=== PATIENT | female | born 1945 | race Caucasian/White ===

== ENCOUNTER 2023-10-27 18:34 | Inpatient (IN) | payer MEDICAID, OTHER ==
[~2023-10-27] VITALS: Ht 157.5 cm; Wt 48.1 kg
[~2023-10-27 18:34] MED LIST: ASPI-1497 PO; METF-414 PO; METO25TA6 PO; SIMV-46 PO
[2023-10-27 18:38] VITALS: O2SAT 98
[2023-10-27 20:21] LABS: BASOPHILS % 0.4 % (0.0-2.0); EOSINOPHILS % 0.6 % (0.0-5.0); HEMATOCRIT. 29.6 % (36.0-48.0); HEMOGLOBIN. 9.5 g/dL (12.0-16.0); LYMPHOCYTES % 17.8 % (20.0-50.0); MEAN CORPUSCULAR HGB CONC 32.2 g/dL (31.0-37.0); MEAN CORPUSCULAR VOLUME 80.9 fL (81.0-99.0); MEAN PLATELET VOLUME 7.6 fl (7.4-10.4); NEUTROPHILS % 73.2 % (40.0-76.0); PLATELET 532 x1000/uL (130-400); RED BLOOD CELL COUNT 3.66 mill/uL (4.2-5.4); WHITE BLOOD COUNT 10.6 x1000/uL (4.5-11.0)
[2023-10-27 20:25] LABS: CHLORIDE 102 mEq/L (98-107); POTASSIUM 4.6 mEq/L (3.5-5.1); SODIUM 136 mEq/L (136-145)
[2023-10-27 20:26] LABS: CALCIUM 9.2 mg/dL (8.7-10.4); CARBON DIOXIDE 28 mEq/L (21-32)
[2023-10-27] MEDS: PIPERACILLIN/TAZO 3.375G/50ML 50 ML IV ONE (20:30)
[2023-10-27 20:31] LABS: GLUCOSE 214 mg/dL (70-105); UREA NITROGEN BLOOD 24 mg/dL (9-23)
[2023-10-27 20:32] LABS: ALANINE AMINOTRANSFERASE 16 IU/L (10-49); ASPARTATE AMINOTRANSFERASE 23 IU/L (<34)
[2023-10-27 20:33] LABS: ALBUMIN 4.1 g/dL (3.2-4.8); BILIRUBIN TOTAL 0.4 mg/dL (0.1-1.0); PROTEIN TOTAL 8.2 g/dL (6.0-8.3)
[2023-10-27 21:00] LABS: INR 1.1; PROTHROMBIN TIME 11.7 sec (9.6-11.0)
[2023-10-27] MEDS ORDERED: ACETAMINOPHEN 650MG/20.3ML UDC GT PRN (22:30)
[2023-10-27] MEDS ORDERED: ONDANSETRON HCL 4MG/2ML INJ IV PRN (22:30)
[2023-10-27] MEDS ORDERED: DIPHENHYDRAMINE 50MG/ML VIAL IV PRN (22:30)
[2023-10-27] MEDS: ACETAMINOPHEN 325MG TABLET PO NR (23:01)
[2023-10-27] MEDS: SODIUM CHLORIDE 0.9% 1,000 ML IV SCH (23:05)
[2023-10-27] MEDS: ENOXAPARIN 40MG/0.4ML SYR SUBCUT SCH (23:08)
[2023-10-27] MEDS: VANCOMYCIN 1G PREMIX 200 ML IV NR (23:30)
[2023-10-27] MEDS: ACETAMINOPHEN 325MG TABLET PO STA (23:44)
[2023-10-27] MEDS: VANCOMYCIN 1G PREMIX 200 ML IV ONE (23:45)
[2023-10-28] MEDS: PIPERACILLIN/TAZO 3.375G/50ML 50 ML IV NR (01:57)
[2023-10-28] MEDS ORDERED: DEXTROSE 50% WATER 50ML SYRINGE IV PRN ×2 (04:45→05:45)
[2023-10-28] MEDS: GABAPENTIN 100MG CAPSULE PO SCH (06:00)
[2023-10-28] MEDS ORDERED: INSULIN LISPRO 100 UNITS/ML SUBCUT SCH (08:20)
[2023-10-28] MEDS: INSULIN LISPRO 100 UNITS/ML SUBCUT SCH (08:20)
[2023-10-28] MEDS: BLOOD SUGAR DIAGNOSTIC STRIP TEST SCH (08:39)
[2023-10-28] MEDS ORDERED: BLOOD SUGAR DIAGNOSTIC STRIP TEST SCH (09:00)
[2023-10-28] MEDS: LOSARTAN 25 MG TABLET PO SCH (10:02)
[2023-10-28] MEDS: ASPIRIN 81MG TABLET PO SCH (10:02)
[2023-10-28 12:00] VITALS: BP 150/69; PULSE 88; RESP 18; TEMP 36.50292; O2SAT 97
[2023-10-28] MEDS: ENOXAPARIN 30MG/0.3ML SYR SUBCUT SCH (12:00)
[2023-10-28 14:00] VITALS: BP 139/81; PULSE 66; RESP 18; TEMP 36.5292
[2023-10-28 16:00] VITALS: BP 156/66; PULSE 80; RESP 18; TEMP 35.72508; O2SAT 95
[2023-10-28] MEDS ORDERED: LIDOCAINE HCL 1% 20ML VIAL ONE (16:43)
[2023-10-28] MEDS ORDERED: BUPIVACAINE HCL/PF 0.5% (5MG/ML) 10ML ONE (16:43)
[2023-10-28] MEDS ORDERED: FENTANYL CITRATE/PF 50MCG/ML 2ML VIAL IV PRN (17:15)
[2023-10-28] MEDS ORDERED: ONDANSETRON HCL 4MG/2ML INJ IV PRN (17:15)
[2023-10-28] MEDS ORDERED: POLYMYXIN B SULFATE 500000 UNITS/VIAL ONE (17:53)
[2023-10-28] MEDS ORDERED: PROPOFOL 10MG/ML 100ML 100 ML IV ONE (17:53)
[2023-10-28] MEDS ORDERED: FENTANYL CITRATE/PF 50MCG/ML 2ML VIAL ONE (17:59)
[2023-10-28] MEDS ORDERED: MIDAZOLAM HCL 2 MG/2 ML VIAL ONE (17:59)
[2023-10-28] MEDS ORDERED: PROPOFOL 200MG/20ML VIAL IV ONE (18:06)
[2023-10-28] MEDS: ATORVASTATIN CALCIUM 40MG TABLET PO SCH (21:00)
[2023-10-28] MEDS ORDERED: CEFEPIME 2GM IN DEXT 5% 100ML IV SCH (21:15)
[2023-10-28] MEDS: CEFEPIME 2GM/100ML 100 ML IV SCH (22:30)
[2023-10-29] VITALS: BP 111/70; PULSE 102; RESP 18; TEMP 36.00288; O2SAT 99
[2023-10-29] MEDS: VANCOMYCIN 1G PREMIX 200 ML IV SCH (00:25)
[2023-10-29] MEDS: ACETAMINOPHEN 650MG/20.3ML UDC GT PRN (03:25)
[2023-10-29 04:00] VITALS: BP 116/72; PULSE 91; RESP 18; TEMP 35.94732; O2SAT 100
[2023-10-29] MEDS: DEXT 5%/0.45% NACL 1000ML 1,000 ML IV SCH (04:40)
[2023-10-29 08:00] VITALS: BP 145/64; PULSE 82; RESP 18; TEMP 36.3918; O2SAT 100
[2023-10-29] MEDS ORDERED: NALOXONE HCL 0.4MG/ML VIAL IV PRN (11:15)
[2023-10-29 11:37] LABS: BASOPHILS % 0.5 % (0.0-2.0); EOSINOPHILS % 0.8 % (0.0-5.0); HEMATOCRIT. 30.2 % (36.0-48.0); HEMOGLOBIN. 9.4 g/dL (12.0-16.0); LYMPHOCYTES % 9.7 % (20.0-50.0); MEAN CORPUSCULAR HEMOGLOBIN 25.3 pg (28.0-32.0); MEAN CORPUSCULAR HGB CONC 31.1 g/dL (31.0-37.0); MEAN CORPUSCULAR VOLUME 81.4 fL (81.0-99.0); MEAN PLATELET VOLUME 7.3 fl (7.4-10.4); MONOCYTES % 5.9 % (2.0-8.0); NEUTROPHILS % 83.1 % (40.0-76.0); PLATELET 470 x1000/uL (130-400); RED BLOOD CELL COUNT 3.71 mill/uL (4.2-5.4); RED CELL DISTRIBUTION WIDTH 14.9 % (11.6-14.6)
[2023-10-29 11:59] LABS: CHLORIDE 103 mEq/L (98-107); POTASSIUM 4.1 mEq/L (3.5-5.1); SODIUM 135 mEq/L (136-145)
[2023-10-29 12:00] VITALS: BP 154/70; PULSE 99; RESP 18; TEMP 36.50292; O2SAT 100
[2023-10-29 12:00] LABS: CARBON DIOXIDE 22 mEq/L (21-32)
[2023-10-29 12:05] LABS: CREATININE 0.7 mg/dL (0.6-1.0); GLUCOSE 194 mg/dL (70-105)
[2023-10-29 12:06] LABS: UREA NITROGEN BLOOD 14 mg/dL (9-23)
[2023-10-29 12:07] LABS: ALANINE AMINOTRANSFERASE 11 IU/L (10-49); ASPARTATE AMINOTRANSFERASE 19 IU/L (<34)
[2023-10-29 12:08] LABS: BILIRUBIN TOTAL 0.5 mg/dL (0.1-1.0); PROTEIN TOTAL 8.1 g/dL (6.0-8.3)
[2023-10-29] MEDS: HYDROCODONE/ACETAMINOPHEN 5/325MG TABLET PO PRN (12:31)
[2023-10-29] MEDS ORDERED: IOHEXOL-350 100 ML BOTTLE ONE (13:03)
[2023-10-29 16:00] VITALS: BP 121/61; PULSE 71; RESP 19; TEMP 36.3918; O2SAT 97
[2023-10-29 20:00] VITALS: BP 121/44; PULSE 87; RESP 19; TEMP 36.72516; O2SAT 99
[2023-10-30] VITALS: BP 146/49; PULSE 94; RESP 19; TEMP 37.2252; O2SAT 99
[2023-10-30 04:00] VITALS: BP 138/52; PULSE 85; RESP 19; TEMP 36.89184; O2SAT 99
[2023-10-30 08:00] VITALS: BP 136/52; PULSE 87; RESP 19; TEMP 36.72516; O2SAT 99
[2023-10-30 10:57] LABS: BASOPHILS % 0.5 % (0.0-2.0); EOSINOPHILS % 0.9 % (0.0-5.0); HEMATOCRIT. 25.8 % (36.0-48.0); HEMOGLOBIN. 8.3 g/dL (12.0-16.0); LYMPHOCYTES % 18.4 % (20.0-50.0); MEAN CORPUSCULAR HGB CONC 32.1 g/dL (31.0-37.0); MEAN PLATELET VOLUME 7.7 fl (7.4-10.4); MONOCYTES % 9.3 % (2.0-8.0); NEUTROPHILS % 70.9 % (40.0-76.0); PLATELET 426 x1000/uL (130-400); RED BLOOD CELL COUNT 3.19 mill/uL (4.2-5.4); RED CELL DISTRIBUTION WIDTH 15.1 % (11.6-14.6); WHITE BLOOD COUNT 7.1 x1000/uL (4.5-11.0)
[2023-10-30 11:10] LABS: CARBON DIOXIDE 23 mEq/L (21-32); CHLORIDE 105 mEq/L (98-107); POTASSIUM 3.9 mEq/L (3.5-5.1); SODIUM 136 mEq/L (136-145)
[2023-10-30 11:11] LABS: CALCIUM 8.4 mg/dL (8.7-10.4)
[2023-10-30 11:15] LABS: CREATININE 0.7 mg/dL (0.6-1.0); GLUCOSE 205 mg/dL (70-105)
[2023-10-30 11:16] LABS: UREA NITROGEN BLOOD 15 mg/dL (9-23)
[2023-10-30 11:17] LABS: ALANINE AMINOTRANSFERASE 9 IU/L (10-49); ALBUMIN 3.2 g/dL (3.2-4.8); ASPARTATE AMINOTRANSFERASE 19 IU/L (<34)
[2023-10-30 11:18] LABS: BILIRUBIN TOTAL 0.4 mg/dL (0.1-1.0); PROTEIN TOTAL 6.6 g/dL (6.0-8.3)
[2023-10-30 12:00] VITALS: BP 142/53; PULSE 88; RESP 18; TEMP 36.61404; O2SAT 99
[2023-10-30 16:00] VITALS: BP 145/61; PULSE 82; RESP 19; TEMP 36.3918; O2SAT 98
[2023-10-30] MEDS ORDERED: LEVOFLOXACIN 750MG PREMIX 150 ML IV NR (16:00)
[2023-10-30] MEDS: HYDROCODONE/ACETAMINOPHEN 5/325MG TABLET PO PRN (18:10)
[2023-10-30 20:00] VITALS: BP 145/53; PULSE 91; RESP 18; TEMP 36.61404; O2SAT 95
[2023-10-30] MEDS: CEFTRIAXONE 2GM/50ML 50 ML IV SCH (22:21)
[2023-10-31] VITALS (7 sets, daily range): BP systolic 107–143; BP diastolic 50–85; PULSE 80–95; RESP 17–18; TEMP 35.89176–37.28076; O2SAT 95–100
[2023-10-31] MEDS ORDERED: DEXTROSE 50% WATER 50ML SYRINGE IV PRN (10:30)
[2023-10-31] MEDS: BLOOD SUGAR DIAGNOSTIC STRIP TEST SCH (12:20)
[2023-10-31] MEDS: INSULIN LISPRO 100 UNITS/ML SUBCUT SCH (12:50)
[2023-11-01] VITALS: BP 143/61; PULSE 89; RESP 18; TEMP 37.503; TEMP 37.50300; O2SAT 100
[2023-11-01] MEDS ORDERED: LEVOFLOXACIN 750MG PREMIX 150 ML IV SCH (11:00)
== END 2023-11-01 02:42 | disposition home or self-care (01) | DRG 710 ==
LOC: ER 18:34 → 5WST 23:10 → EDBEDREQ 23:13 → EDBEDREQSVC 10-28 01:11 → 6EST 10-28 11:24
PROVIDERS: ADMIT Internal Medicine; ATTEND Internal Medicine
PROC: 0Y6M0Z4 Detachment at Right Foot, Complete 1st Ray, Open Approach (ICD-10-PCS; principal; 2023-10-28)
DX: A41.9 Sepsis, unspecified organism (principal); E43 Unspecified severe protein-calorie malnutrition; E11.52 Type 2 diabetes mellitus with diabetic peripheral angiopathy with gangrene; A48.0 Gas gangrene; N17.9 Acute kidney failure, unspecified; E11.40 Type 2 diabetes mellitus with diabetic neuropathy, unspecified; D64.9 Anemia, unspecified; E86.0 Dehydration; I10 Essential (primary) hypertension; E78.00 Pure hypercholesterolemia, unspecified; E46 Unspecified protein-calorie malnutrition; L02.611 Cutaneous abscess of right foot; K21.9 Gastro-esophageal reflux disease without esophagitis; M86.8X7 Other osteomyelitis, ankle and foot; E11.69 Type 2 diabetes mellitus with other specified complication; I25.10 Atherosclerotic heart disease of native coronary artery without angina pectoris; Z95.1 Presence of aortocoronary bypass graft; Z79.4 Long term (current) use of insulin; Z68.1 Body mass index [BMI] 19.9 or less, adult; Z79.82 Long term (current) use of aspirin; Z79.899 Other long term (current) drug therapy; Z90.710 Acquired absence of both cervix and uterus
CPT/HCPCS: 36415; 71045; 72191; 73630; 73706; 73721; 80053; 80202; 82010; 82962; 83036; 85025; 85651; 87070; 87075; 87076; 87077; 87186; 88304; 88305; 88311; 93005; 93923; 97022; 97162; 99285; C1893; J0692; J0696; J1650; J1815; J1956; J2250; J2543; J2704; J3010; J3370; J3490; Q9967